=== PATIENT | male | born 1995 | race Caucasian/White ===

== ENCOUNTER 2017-12-03 19:18 | Observation (INO) | payer BC, OTHER ==
--- NOTE | 2017-12-03 19:27 | EDPHY ---
H & P Time Seen by Provider: 12/03/17 19:27 Constitutional: Initial Vital Signs Temperature (C) 36.5 C 12/03/17 19:29 Heart Rate 112 H 12/03/17 19:29 Respiratory Rate 20 12/03/17 19:29 Blood Pressure 169/99 H 12/03/17 19:29 O2 Sat (%) 100 12/03/17 19:29 O2 Delivery Mode Nasal Cannula O2 (L/minute) 2 Allergies/Adverse Reactions: No Known Allergies Allergy (Unverified 12/03/17 19:28) Home Medications: Medication Instructions Recorded NK [No Known Home Meds] 12/03/17 Medical Decision Making - Diagnostics Imaging Results: Imaging Impressions Abdomen CT 12/03/17 19:30 Impression: 1. Normal appendix 2. Short segment of nonspecific, focally mildly dilated fluid-filled small bowel in the right mid hemipelvis. I do not believe that this represents a Meckel's diverticulum. Perhaps it is related to a small adhesion or internal hernia. Results discussed with Dr. Meyers. General information for patients regarding this examination can be found at [email or web address]. If you have questions or comments about this report, please contact me at [phone] (hospital) or [phone] (cell). Imaging: Discussed imaging studies w/ security monitor Radiologist, I viewed and interpreted images myself ED Course/Re-evaluation: CHIEF COMPLAINT: Abdominal pain and nausea HISTORY OF PRESENT ILLNESS: The patient is a 22 y/o male complaining of worsening abdominal pain and nausea onset this morning. As the pain has not improved, he decided to present to the emergency department. Denies chest pain, shortness of breath, urinary or bowel complaints, numbness, paresthesias, fever. REVIEW OF SYSTEMS: A 10 point review of systems was performed and is negative with the exception of the elements mentioned in the history of present illness. PHYSICAL EXAM: HR, BP, O2 Sat, RR. Temp noted General Appearance: Alert, well hydrated, appropriate, and non-toxic appearing. Head: Atraumatic without scalp tenderness or obvious injury Eyes: Pupils equal, round, reactive to light and accommodation, EOMI, no trauma , no injection. Ears: Clear bilaterally, no perforation, normal landmarks Nose: Atraumatic, no rhinorrhea, clear. Throat: There is no erythema or exudates, no lesions, normal tonsils, mucus membranes moist. Neck: Supple, nontender, no lymphadenopathy. Respiratory: No retractions, no distress, no wheezes, and no accessory muscle use. Lungs are clear to auscultation bilaterally. Cardiovascular: Regular rate and rhythm, no murmurs, rubs, or gallops. Bilateral carotid, radial, dorsalis pedis, and posterior tibial pulses intact. Good capillary refill all extremities. Gastrointestinal: Right mid and lower quadrant tenderness to palpation. Abdomen is soft, non-distended, no masses, no rebound, no guarding, no peritoneal signs. Musculoskeletal: Normal active ROM of all extremities, atraumatic. Neurological: Alert, appropriate, and interactive. The patient has normal DTRs and non-focal cranial nerves, motor, sensory, and cerebellar exam. Skin: No rashes, good turgor, no nodules on palpation. Past medical history: Denies Past surgical history: Denies Family history: Denies Social history: Student at , single, originally from [place] DIAGNOSTICS/PROCEDURES/CRITICAL CARE TIME: Abdominopelvic CT: Terminal ileum is inflamed. There is a possible internal hernia. The appendix is normal. DIFFERENTIAL DIAGNOSIS: The differential diagnosis for the patient's abdominal pain included but was not limited to appendicitis, cholecystitis, hernias, testicular torsion, gastritis, and urinary tract infection. MEDICAL DECISION MAKING: The patient is a 22 y/o male presenting with worsening abdominal pain and nausea , onset this morning. On exam he has right mid and lower quadrant tenderness to palpation. Labs and abdominopelvic CT ordered; 1mg IV Dilaudid, 4mg IV Zofran, and 1L IV NS administered. 2023: I spoke with Dr. Shanks, radiologist, who reports that the terminal ileum is inflamed. There is a possible internal hernia. The appendix is normal. The patient's labs reveal an elevated white count and an anion gap. 2024: I reassessed patient and discussed laboratory and imaging findings. I have discussed plan for possible admission; which he is comfortable with. 2025: I consulted with Dr. Khalil, general surgeon, regarding this patient. She agrees to consult on this patient. 2042: I consulted with Dr. Khalil, who agrees with me on the plan to admit this patient for further observation as he might have an internal hernia. Dr. Khalil will admit this patient. 2051: I consulted with Dr. Khalil, who reports that the patient has lost 20 pounds in the last several weeks. She will take the patient to the OR. - Data Points Laboratory Results: Laboratory Results 12/03/17 19:35 12/03/17 19:35 12/03/17 12/03/17 12/03/17 19:40 19:35 19:35 WBC 11.62 10^3/uL H 10^3/uL (3.80-9.50) RBC 5.43 10^6/uL 10^6/uL (4.40-6.38) Hgb 16.1 g/dL g/dL (13.7-17.5) POC Hgb 16.7 gm/dL gm/dL (13.7-17.5) Hct 46.5 % % (40.0-51.0) POC Hct 49 % % (40-51) MCV 85.6 fL fL (81.5-99.8) MCH 29.7 pg pg (27.9-34.1) MCHC 34.6 g/dL g/dL (32.4-36.7) RDW 12.3 % % (11.5-15.2) Plt Count 352 10^3/uL 10^3/uL (150-400) MPV 9.9 fL fL (8.7-11.7) Neut % (Auto) 76.5 % H % (39.3-74.2) Lymph % (Auto) 16.7 % % (15.0-45.0) [place] % (Auto) 5.9 % % (4.5-13.0) Eos % (Auto) 0.4 % L % (0.6-7.6) Baso % (Auto) 0.2 % L % (0.3-1.7) Nucleat RBC Rel Count 0.0 % % (0.0-0.2) Absolute Neuts (auto) 8.89 10^3/uL H 10^3/uL (1.70-6.50) Absolute Lymphs (auto) 1.94 10^3/uL 10^3/uL (1.00-3.00) Absolute Monos (auto) 0.68 10^3/uL 10^3/uL (0.30-0.80) Absolute Eos (auto) 0.05 10^3/uL 10^3/uL (0.03-0.40) Absolute Basos (auto) 0.02 10^3/uL 10^3/uL (0.02-0.10) Absolute Nucleated RBC 0.00 10^3/uL 10^3/uL (0-0.01) Immature Gran % 0.3 % % (0.0-1.1) Immature Gran # 0.04 10^3/uL 10^3/uL (0.00-0.10) POC Sodium 144 mEq/L mEq/L (135-145) Sodium 143 mEq/L mEq/L (135-145) POC Potassium 3.6 mEq/L mEq/L (3.3-5.0) Potassium 4.3 mEq/L mEq/L (3.3-5.0) POC Chloride 106 mEq/L mEq/L (97-110) Chloride 105 mEq/L mEq/L (97-110) Carbon Dioxide 21 mEq/l L mEq/l (22-31) Anion Gap 17 mEq/L H mEq/L (8-16) POC BUN 7 mg/dL mg/dL (7-23) BUN 9 mg/dL mg/dL (7-23) Creatinine 0.8 mg/dL mg/dL (0.7-1.3) POC Creatinine 0.8 mg/dL mg/dL (0.7-1.3) Estimated GFR > 60 Glucose 106 mg/dL H mg/dL (70-100) POC Glucose 103 mg/dL H mg/dL (70-100) Calcium 10.8 mg/dL H mg/dL (8.5-10.4) Phosphorus 2.8 mg/dL mg/dL (2.5-4.5) Total Bilirubin 0.7 mg/dL mg/dL (0.1-1.4) Conjugated Bilirubin 0.3 mg/dL mg/dL (0.0-0.5) Unconjugated Bilirubin 0.4 mg/dL mg/dL (0.0-1.1) AST 22 IU/L IU/L (17-59) ALT 26 IU/L IU/L (21-72) Alkaline Phosphatase 93 IU/L IU/L (38-126) Total Protein 8.8 g/dL H g/dL (6.3-8.2) Albumin 5.2 g/dL H g/dL (3.5-5.0) Lipase 64 IU/L IU/L (23-300) Medications Given: Discontinued Medications Hydromorphone HCl (Dilaudid) 1 mg IVP EDNOW ONE Stop: 12/03/17 19:31 Last Admin: 12/03/17 19:39 Dose: 1 mg Sodium Chloride (Ns) 1,000 mls @ 0 mls/hr IV EDNOW ONE; Wide Open PRN Reason: Protocol Stop: 12/03/17 19:31 Last Admin: 12/03/17 19:36 Dose: 1,000 mls Ondansetron HCl (Zofran) 4 mg IVP EDNOW ONE Stop: 12/03/17 19:31 Last Admin: 12/03/17 19:39 Dose: 4 mg Point of Care Test Results: Chemistry 12/03/17 19:40 POC Sodium 144 mEq/L mEq/L (135-145) POC Potassium 3.6 mEq/L mEq/L (3.3-5.0) POC Chloride 106 mEq/L mEq/L (97-110) POC BUN 7 mg/dL mg/dL (7-23) POC Creatinine 0.8 mg/dL mg/dL (0.7-1.3) POC Glucose 103 mg/dL H mg/dL (70-100) ISTAT H&H 12/03/17 19:40 POC Hgb 16.7 gm/dL gm/dL (13.7-17.5) POC Hct 49 % % (40-51) Departure - Departure Disposition: To OP Cath/Surgery Clinical Impression: possible internal hernia, Dehydration Abdominal pain Qualifiers: Abdominal location: right lower quadrant Qualified Code(s): R10.31 - Right lower quadrant pain Condition: Fair Report Scribed for: Nate Meyers Report Scribed by: Sarai Doyle Date of Report: 12/03/17 Time of Report: 19:29
[2017-12-03] MEDS ORDERED: ONDANSETRON 4 MG/2 ML VIAL IVP ONE (19:30)
[2017-12-03] MEDS ORDERED: HYDROmorphONE/DILAUDID 2 MG/ML INJ IVP ONE (19:30)
[2017-12-03] MEDS ORDERED: NS 1,000 ML IV ONE (19:30)
[2017-12-03] MEDS ORDERED: IOPAMIDOL (ISOVUE 370) 100 ML BTL IV ONE (19:38)
[2017-12-03] MEDS ORDERED: IOPAMIDOL (ISOVUE-300) 100 ML BTL ONE (19:44)
[2017-12-03 19:48] LABS: PLATELET COUNT 352 10^3/uL (150-400)
[2017-12-03] MEDS ORDERED: cefTRIAXone 1 GM VIAL IM ONE (20:55)
[2017-12-03] MEDS ORDERED: cefTRIAXone 1 GM/DEXTROSE 1 GM/50 ML BAG IV ONE (21:00)
[2017-12-03] MEDS ORDERED: ACETAMINOPHEN 325 MG TAB PO PRN (21:17)
[2017-12-03] MEDS ORDERED: ONDANSETRON 4 MG/2 ML VIAL IVP PRN (21:17)
[2017-12-03] MEDS ORDERED: PROMETHAZINE HCL 25 MG/ML INJ IVP PRN (21:17)
[2017-12-03] MEDS ORDERED: NS 1,000 ML IV SCH (21:30)
[2017-12-03] MEDS ORDERED: BUPIVACAINE 0.5% 30 ML SDV ONE (21:36)
[2017-12-03] MEDS ORDERED: DEXAMETHASONE 4 MG/ML VIAL IVP PRN (21:40)
[2017-12-03] MEDS ORDERED: NALOXONE HCL 0.4 MG/ML INJ IVP PRN (21:40)
[2017-12-03] MEDS ORDERED: HYDROmorphONE/DILAUDID 1 MG/ML INJ IVP PRN (21:40)
[2017-12-03] MEDS ORDERED: ALBUTEROL 3 ML DEYVIAL IH PRN (21:40)
[2017-12-03] MEDS ORDERED: fentaNYL 100 MCG/2 ML INJ IVP PRN (21:40)
[2017-12-03] MEDS ORDERED: NS 500 ML IV PRN (21:40)
--- NOTE | 2017-12-03 21:40 | PDANEPAE ---
ANE History of Present Illness here for diagnostic lap ANE Past Medical History - Cardiovascular History Hx Hypertension: No Hx Arrhythmias: No Hx Chest Pain: No Hx Coronary Artery / Peripheral Vascular Disease: No Hx CHF / Valvular Disease: No Hx Palpitations: No - Pulmonary History Hx COPD: No Hx Asthma/Reactive Airway Disease: No Hx Recent Upper Respiratory Infection: No Hx Oxygen in Use at Home: No Hx Sleep Apnea: No ANE Review of Systems Review of systems is: negative Review of Systems: - Exercise capacity Exercise capacity: >=4 METS ANE Patient History - Allergies Allergies/Adverse Reactions: No Known Allergies Allergy (Verified 12/03/17 21:06) - Home Medications Home Medications: NK [No Known Home Meds] 12/03/17 [Last Taken Unknown] - NPO status NPO Since - Liquids (Date): 12/03/17 NPO Since - Liquids (Time): 18:00 NPO Since - Solids (Date): 12/03/17 NPO Since - Solids (Time): 18:00 - Smoking Hx Smoking Status: Never smoked ANE Labs/Vital Signs - Labs Result Diagrams: 12/03/17 19:35 12/03/17 19:35 - Vital Signs Vital Signs: reviewed preoperatively; see RN documention for details Blood Pressure: 144/73 Heart Rate: 84 Respiratory Rate: 16 O2 Sat (%): 96 Height: 187.96 cm Weight: 92.079 kg ANE Physical Exam - Airway Neck exam: FROM Mallampati Score: Class 1 - Pulmonary Pulmonary: no respiratory distress - Cardiovascular Cardiovascular: regular rate and rhythym - ASA Status ASA Status: I, E ANE Anesthesia Plan Anesthesia Plan: general endotracheal anesthesia
--- NOTE | 2017-12-03 21:42 | GHP ---
[f rep st] HISTORY AND PHYSICAL DATE OF ADMISSION: 12/03/2017 CHIEF COMPLAINT: Abdominal pain. HISTORY OF PRESENT ILLNESS: Patient is a 22-year-old man who in retrospect has had something wrong for the past 3+ weeks. He has had an approximately 20- pound weight loss without doing anything. He reports that he absolutely loves food and even today just could not even force himself the eat two bites. He is having bowel movements, although they have changed in consistency. He noticed abdominal pain starting about 4 days ago, but it escalated to a point today where it was so severe and he was having multiple episodes of emesis that he presented to the emergency room. He describes the pain as waves of pain that are sharp and shoot across his abdomen. It is more in the right upper quadrant. PAST MEDICAL HISTORY: None. PAST SURGICAL HISTORY: None. 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 He denies tobacco use. FAMILY HISTORY: Significant for paternal grandfather, colon cancer; maternal grandfather, pancreatic cancer; maternal grandmother, breast cancer; and maternal uncle, colon cancer. REVIEW OF SYSTEMS: 10-point review of systems negative except per HPI. PHYSICAL EXAMINATION: VITAL SIGNS: 37.1, 84, 144/73, 16, 96% on 2 L. GENERAL : Pleasant man, extremely uncomfortable, lying on right hip in bed with knees curled. HEENT: Normocephalic. No gross hearing deficits. Mucous membranes moist. Pupils equal and round. No scleral icterus. LUNGS: Clear to auscultation bilaterally. No increased work of breathing. CARDIAC: Regular rate. No peripheral edema. ABDOMEN: Bowel sounds hypoactive. Even with light palpation, it brought tears to his eyes. He is also tender to percussion , and it is worse in the right upper quadrant. I am able to palpate fairly deeply in the left lower quadrant. MUSCULOSKELETAL: Normal nails. NEURO: Grossly intact. PSYCH: Mood and affect normal. LAB RESULTS: I personally reviewed the results of the CT scan, and in general, his bowel seems very small caliber with the exception of the small area of the terminal ileum which is certainly dilated. His white count is normal. His electrolytes are within normal limits. IMPRESSION AND PLAN: A 22-year-old with severe abdominal pain. There was question of internal hernia on his CT scan. However, even if this was not found on CT, due to his extreme abdominal pain, I think it is prudent to take him to the operating room for a diagnostic laparoscopy. I described that if I found a loop of bowel that was compromised that I would resect this. He understands there are risks to surgery such as stroke, heart attack, , blood clots, infection, bleeding, leak, and it may be nondiagnostic. He had his questions answered to his satisfaction and signed the informed consent. /[id number]/MODL MTDD
[2017-12-03] MEDS ORDERED: MIDAZOLAM 2 MG/2 ML VIAL IVP ONE (21:44)
[2017-12-03] MEDS ORDERED: fentaNYL 100 MCG/2 ML INJ ONE ×3 (21:46→23:04)
[2017-12-03] MEDS ORDERED: PROPOFOL/EMULSION 500 MG/50 ML BOTTLE IV ONE (21:46)
[2017-12-03] MEDS ORDERED: DEXAMETHASONE 4 MG/ML VIAL ONE ×2 (22:10)
[2017-12-03] MEDS ORDERED: ONDANSETRON 4 MG/2 ML VIAL ONE ×2 (22:49→23:04)
[2017-12-03] MEDS: ONDANSETRON 4 MG/2 ML VIAL IVP PRN ×2 (22:51→23:06)
--- NOTE | 2017-12-03 22:53 | POSTOPPROG ---
Post Op Note Date of Operation: 12/03/17 Surgeon: Rajani Khalil Anesthesiologist: arnol Anesthesia: GET(General Endotracheal) Pre-op Diagnosis: abdominal pain Post-op Diagnosis: ?early appendicitis Indication: 22 year old with escalating and severe abdominal pain Procedure: diagnostic laparoscopy and lap appy Findings: injected appendix. No hernias. No meckels Inf/Abcess present in the surg proc area at time of surgery?: No EBL: Minimal Specimen(s): appendix
--- NOTE | 2017-12-03 22:59 | POSTANESTH ---
Post Anesthetic Evaluation Cardiovascular Status: Normal, Stable Respiratory Status: Normal, Stable Level of Consciousness/Mental Status: Can Participate in Eval Pain Control: Adequate, Prn Tx Ordered Nausea/Vomiting Control: Adequate, Prn Tx Ordered Complications Possibly Related to Anesthesia: None Noted
--- NOTE | 2017-12-03 23:13 | GOP ---
[f rep st] OPERATIVE REPORT DATE OF OPERATION: 12/03/2017 SURGEON: Rajani Khalil MD ANESTHESIA: General. ANESTHESIOLOGIST: Dr. Indra Cummins. PREOPERATIVE DIAGNOSIS: Severe abdominal pain. POSTOPERATIVE DIAGNOSIS: Questionable early appendicitis. PROCEDURE PERFORMED: Diagnostic laparoscopy with laparoscopic appendectomy. FINDINGS: Injected appendix. Otherwise, no Meckel's. No internal hernias. No obvious bowel obstru ctions. SPECIMENS: Appendix. ESTIMATED BLOOD LOSS: 5 cc. INDICATIONS: The patient is a 22-year-old who has had some weight loss. He has had abdominal pain f or several days, which has been escalating and today he had multiple episodes of emesis. He has not had sick contacts or eaten any unusual foods. Due to this severe pain, he presented to the emergency room. A CT scan was obtained, which showed a possible internal hernia. On physical exam, his pain was very impressive with only light touch bring tears to his eyes. Decision was made to bring him to the operating room. DESCRIPTION OF PROCEDURE: Patient was brought into the operating room, placed supine on the table an d general anesthesia was administered. His abdomen was prepped and draped in the usual sterile fashi on. Infiltrated all sites with 0.5% Marcaine prior to making incisions. I made an incision at his u mbilicus. I inserted the Veress needle, it passed the hanging drop test. His abdomen insufflated ea sily to a pressure of 15 mmHg. I inserted a 5 mm trocar with a camera at this site. There were no i njuries from Veress needle placement. I explored his abdomen, did not see any obvious necrotic bowel . I placed a 5 mm suprapubic trocar and started to run the bowel. His appendix appeared to be sligh tly injected. I made the decision to remove the appendix. I placed an additional 10 mm trocar in th e left lower quadrant, I elevated his appendix and I divided the mesoappendix with the Harmonic Scalp el. I transected the base with an Endo-ANGELICA 45 white load. I placed an EndoCatch bag and retrieved i t via the 10 mm trocar. I then ran his bowel from the terminal ileum to the ligament of Treitz, alth ough there was certain areas that had different caliber of the bowel, it was all within normal limits . There was no creeping fat or no other abnormalities found. There was no internal hernias. Liver, gallbladder, colon also appeared normal. I removed the ports under direct vision and allowed the ab domen to desufflate. I closed the fascia at the 10 mm trocar site with 0 Vicryl. I closed skin with 4-0 Monocryl. Dermabond applied. He was awakened in the operating room, extubated, transferred to PACU in stable condition. I spoke w ith his mom by phone after the case. /[id number]/MODL
[2017-12-03] MEDS: KETOROLAC 15 MG/1 ML SDV IVP SCH (23:39)
[2017-12-04 04:59] LABS: PLATELET COUNT 314 10^3/uL (150-400)
[2017-12-04] MEDS: KETOROLAC 15 MG/1 ML SDV IVP SCH ×4 (06:03→23:19)
[2017-12-04] MEDS ORDERED: NS 1,000 ML IV ONE (06:15)
[2017-12-04] MEDS: ONDANSETRON DISINTEGRATING 4 MG TAB PO PRN ×3 (06:26→20:37)
--- NOTE | 2017-12-04 09:11 | SOAPPROG ---
SOAP Progress Note Assessment/Plan: Assessment/plan: 22-year-old man postoperative day 1. Status post laparoscopic appendectomy WBC count elevated this morning. Monitor. Pain controlled Passing flatus. Clear liquid diet Vital signs stable Dispo: Advance diet this afternoon as tolerated. Continue to monitor today, possible discharge later this afternoon or tomorrow morning. S: Feels significantly better this morning. Pain controlled. Has not gone up gotten up to walk. Urinating well. Passing flatus O: Lying in bed, comfortable, no acute distress No increased work of breathing, clear to auscultation bilaterally Regular rate and rhythm Abdomen positive bowel sounds throughout, soft, nondistended, minimally tender around incisions and right lower quadrant. Incisions clean, dry and intact. No rebound or guarding. Objective: Vital Signs Temp Pulse Resp BP Pulse Ox 37.3 C 88 18 130/71 H 93 12/04/17 07:35 12/04/17 07:35 12/04/17 07:35 12/04/17 07:35 12/04/17 07:35 Laboratory Results 12/04/17 04:40 12/04/17 04:40 12/03/17 12/04/17 12/05/17 05:59 05:59 05:59 Intake Total 3100 1000 Output Total 125 225 Balance 8050 553 ICD10 Worksheet Patient Problems: Problems Problem Status Onset Abdominal pain Acute Dehydration Acute
--- NOTE | 2017-12-04 16:13 | ASMTCMCOM ---
CM Note CM Note Notes: Pt is a [employer] student and lives in apartment with his cousin. Admitted for lap appendectomy WBC still elevated. Cousin will be picking him up and helping him to obtain medications on discharge, possibly tomorrow. Pt comfortable discharging independently and states mother is coming into town Monday to be with him. Pt comfortable with cousin until then. No CM needs identified at this time. D/C Plan: Home with roomate/cousin independently Date Signed: 12/04/2017 04:11 PM Electronically Signed By:Jenny Smith
[2017-12-05 05:02] LABS: PLATELET COUNT 249 10^3/uL (150-400)
[2017-12-05] MEDS: KETOROLAC 15 MG/1 ML SDV IVP SCH (05:11)
[2017-12-05 07:55] VITALS: BP 138/78
[2017-12-05] MEDS: ONDANSETRON DISINTEGRATING 4 MG TAB PO PRN (08:10)
--- NOTE | 2017-12-05 08:48 | SOAPPROG ---
SOAP Progress Note Assessment/Plan: Assessment/plan: 22-year-old man postoperative day 2 Status post laparoscopic appendectomy WBC count improved Pain controlled Nausea improving Passing flatus. Regular diet Vital signs stable Dispo: Discharge home. Follow up in 1 week. S: Continues to feel much better. Pain controlled. Nausea improved. Slept over 8 hr last night O: Lying in bed, comfortable, no acute distress No increased work of breathing Abdomen positive bowel sounds throughout, soft, nondistended, minimally tender around incisions and right lower quadrant. Incisions clean, dry and intact. No rebound or guarding. Objective: Vital Signs Temp Pulse Resp BP Pulse Ox 36.6 C 72 16 138/78 H 98 12/05/17 07:52 12/05/17 07:52 12/05/17 07:52 12/05/17 07:52 12/05/17 07:52 Laboratory Results 12/05/17 04:25 12/05/17 04:25 12/04/17 12/05/17 12/06/17 05:59 05:59 05:59 Intake Total 3100 1400 Output Total 125 225 Balance 2975 1175 ICD10 Worksheet Patient Problems: Problems Problem Status Onset Abdominal pain Acute Dehydration Acute
--- NOTE | 2017-12-05 09:09 | GDS ---
[f rep st] DISCHARGE SUMMARY ADMITTING DIAGNOSIS: Abdominal pain, nausea. SECONDARY DIAGNOSIS: None. REASON FOR ADMISSION: The patient is a 22-year-old man, who presented to the emergency room with sev ere abdominal pain and nausea. Abdominal CT was performed, which showed normal appendix with short-s egment of nonspecific focally mildly dilated fluid-filled small bowel in the right hemipelvis. He wa s admitted for surgical intervention, pain control, and observation. HOSPITAL COURSE: He was taken to the operating room by Dr. Rajani Khalil on 12/03/2017 for diagnostic laparoscopy. A laparoscopic appendectomy was performed. At the time of surgery, the appendix appear ed injected. No internal hernias, no Meckel diverticulum, no other intraabdominal finding. On posto perative day #1, his white blood cell count was elevated at 16,000. His pain was improved. His naus ea was improving. He had decreased appetite. By postoperative day #2, his white blood cell count campa d returned down to 10,000. He was tolerating regular diet, ambulating independently. Pain was contr olled and had full return of bowel function. He was ready for discharge. DISCHARGE MEDICATIONS: Home with prescription for Zofran, and instructed to take ibuprofen. No home meds to resume. Please see EMR for further detail. DISCHARGE INSTRUCTIONS AND FOLLOWUP: He will follow up with Dr. Khalil in 1 week for reevaluation. H e will avoid heavy lifting, pushing, or pulling greater than 15 pounds for 2 weeks. Avoid swimming p ool, tub baths, and hot tubs for 2 weeks. May shower with incisions uncovered. A note was provided; school excuse was provided to the patient. He understands to call with any worsening symptoms, ques tions, or concerns. /[id number]/MODL
--- NOTE | 2017-12-05 09:36 | ASMTDCNOTE ---
Case Management Discharge Discharge Order Complete? 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 Admitted for lap appedectomy. Cousin will be picking him up and helping him to obtain medications on discharge. Pt comfortable discharging independently and states mother is coming into town Monday to be with him. Pt comfortable with cousin until then. No CM needs identified at this time. Date Signed: 12/05/2017 09:09 AM Electronically Signed By:Meghan Boone RN
--- NOTE | 2017-12-05 09:36 | ASMTLACE ---
MICHAELAE Length of stay for Answers: 2 days current admission Acuity / Level of Answers: No Care: Did the patient have an inpatient admission? # of Emergency department Answers: 1-2 visits in the last 6 months Score: 3 Date Signed: 12/05/2017 09:10 AM Electronically Signed By:Meghan Boone RN
== END 2017-12-05 10:13 | disposition home or self-care (01) ==
LOC: F3E 23:29
PROVIDERS: ADMIT Surgery; ATTEND Surgery
PROC: 0DTJ4ZZ Resection of Appendix, Percutaneous Endoscopic Approach (ICD-10-PCS; principal; 2017-12-03 21:45)
DX: K35.80 Unspecified acute appendicitis (principal); E86.0 Dehydration
CPT/HCPCS: 44970; 74177; 96361; 96374; 96375; 96376; 99285; G0378; 82435-PO; 82565-PO; 82947-PO; 84132-PO; 84295-PO; 84520-PO; 85014-PO; J0696; J1100; J1885; J2405; J2704; J3010; Q9967